=== PATIENT | female | born 1990 | race Caucasian/White ===

== ENCOUNTER 2024-03-04 15:04 | Inpatient (IN) | payer OTHER, SELFPAY ==
[2024-03-04 15:04] VITALS: BP 151/111; PULSE 124; RESP 18; TEMP 36.4; O2SAT 99; BMI 33.3
[2024-03-04] MEDS: Ondansetron 4 MG/2 ML Vial IV ×2 (16:37→21:41)
[2024-03-04] MEDS: 0.9% Normal Saline (1000mL) 1,000 ML 1000 ML IV (16:37)
[2024-03-04 16:45] LABS: Absolute Lymphocyte Count 0.92 X10^3/uL (0.83-4.51); Absolute Neutrophil Count 8.7 X10^3/uL (2.0-7.7); Basophil# 0.05 X10^3/uL; Basophil% 0.5 % (0-1); Eosinophil# 0.04 X10^3/uL; Eosinophils% 0.4 % (0-5); Hematocrit 45.4 % (37-47); Hemoglobin 15.2 g/dL (12.0-15.0); Lymphocyte # 0.92 X10^3/ul (0.83-4.51); Lymphocyte % 8.9 % (19-41); Mean Corp Hgb Conc 33.5 g/dL (32-36); Mean Corpuscular Volume 83.8 fL (81-99); Mean Platelet Vol. 8.5 fl (6.2-12.0); Monocyte# 0.55 X10^3/uL; Monocyte% 5.3 % (0-10); NRBC Flagged by Analyzer 0 % (0-5); Neutrophil # 8.71 X10^3/uL (2.7-7.7); Neutrophil % 84.5 % (47-70); Platelet Count 293 K/mm3 (150-450); RBC Distribution Width CV 12.6 % (11.6-14.6); RBC Distribution Width SD 38.3 fl (35.1-43.9); Red Blood Count 5.42 M/mm3 (4.2-5.4); White Blood Count 10.3 K/mm3 (4.4-11.0)
--- NOTE | 2024-03-04 17:00 | EDS_ITS ---
HPI HPI - GI History of Present Illness Chief Complaint: Abd Pain Detail of Chief Complaint: Right upper quadrant abdominal pain radiating through to her back Informant: patient Abdominal Pain/Flank Pain Onset: Today (Awaken from sleep at 0400) Context: Sudden Onset Timing: Continuous and Waxes and wanes Quality: Aching and Cramping Location: RUQ Current Severity: Moderate Maximum Severity: Severe Worsened by: Nothing Relieved by: Nothing Nausea/Vomiting/Emesis GI Symptom: Positive for Nausea and Vomiting (X 1) Onset: Today Diarrhea/Melena/Hematochezia GI Symptom: Positive for Diarrhea Onset: Today Stool Quality: Positive for Loose Associated Symptoms Associated Symptoms: Negative for Dysuria, Frequency, Hematuria or Urgency LMP: Presently Narrative Narrative: Patient 34-year-old G4, P4 white female with known history of gallstones who was away from sleep at 0400 because of severe right upper quadrant cramping achy pa in radiated to the intrascapular area. This was followed by nausea and vomiting x 1. She has had diarrhea. She does endorse thirst and dry mouth. She is menstruating presently. She has no symptoms of . She states she had chicken strips last evening. There is a family history of cholelithiasis. She has not noted change in color urine. She has not noted change in the color of her eyes or skin. Patient denies headache, visual, ocular auditory symptoms. Patient denies respiratory or cardiac symptoms. Patient denies urologic symptoms. Prior similar symptoms: Yes (When she was . She states she was treated with antibiotics. She d) Recent Illness/Hospitalization: No [facility] Medical History (Updated 03/04/24 @ 18:[address] Tarik Horowitz MD) Physical exam, pre-employment Home Medications No Known/Unobtainable [No Known Home Medications] 03/18/17 [History Last Taken Unknown] Allergy/AdvReac Type Severity Reaction Status Date / Time No Known Allergies Allergy Verified 03/04/24 15:06 Social History Smoking Status: Never smoker ROS ROS ED Constitutional Constitutional ED: Denies chills, fever(s), subjective or sweats ENT ENT ED: Denies ear pain, rhinorrhea or sore throat Cardiovascular Cardiovascular: Denies chest pain, orthopnea, palpitations, paroxysmal nocturnal dyspnea or racing heartbeat Respiratory/Chest Respiratory/Chest: Denies cough, dyspnea, dyspnea on exertion, orthopnea or paroxysmal nocturnal dyspnea Gastrointestinal Gastrointestinal: Reports diarrhea, nausea and vomiting; Denies abdominal pain Genitourinary Genitourinary ED: Reports LMP (females 10-50) Details: Comment: (Presently. Patient does use control.); Denies dysuria, hematuria or urinary frequency Musculoskeletal Musculoskeletal: Reports back pain; Denies arthralgias, myalgias or neck pain Integumentary Denies rash Endocrine Endocrinology: Denies polydipsia or polyphagia Hematologic/Lymphatic Hematologic/Lymphatic: Denies easy bleeding or easy bruising EXAM Physical Exam Const Vital Signs: 03/04/24 15:04 Temperature 97.6 F L Temperature Source Temporal Pulse Rate 124 H Respiratory Rate 18 Blood Pressure 151/111 H Blood Pressure Mean 124 Pulse Ox 99 Oxygen Delivery Method Room Air Positive well nourished, well developed and obese General Appearance ED: well developed and NAD; Negative for pallor Nutritional Appearance: obese HEENT Reports dry mucous membranes normocephalic and atraumatic Mouth ED: Yes dry mucous membranes Mouth: dry mucous membranes Eyes PERRL and EOMs intact bilaterally Neck supple and no JVD Resp normal respiratory effort and clear to auscultation bilaterally Cardio regular rhythm, S1 normal heart sound, S2 normal heart sound and no murmurs Rate: tachycardic GI non-distended and no masses; Negative for non-tender Auscultation: hypoactive bowel sounds Palpation: tender RUQ and Snow's sign; Negative for rigid, hepatomegaly, splenomegaly, hernia or mass Back/Spine no CVA tenderness Extremity full ROM General Extremety ED: Negative for edema or tenderness General Extremity: Negative for edema Neuro CN's II-XII intact bilaterally and moves all extremities Sensorium / Orientation: alert Psych mental status grossly normal and thought process normal Skin no wounds General Skin Exam: Negative for jaundice or pallor MDM MDM MDM Narrative Medical decision making narrative: Dr. De Anda be abdominal pain unknown etiology, peptic ulcer disease, cholelithiasis with colic, acute cholecystitis. Will obtain CBC, hepatic and lipase as well as ultrasound the right upper quadrant. Patient not eaten since last evening. Patient was offered pain medicine which she declined. She did request medication for nausea. History & Record Review Additional record(s) reviewed:: Prior outpatient record (Employment history and physical 2021) and Prior ED visit (2016) Lab Data Attestation: I reviewed the patient's lab results. Lab results narrative: White count is upper end of normal. There is a slight shift with 85% segs no bands. Liver enzymes are normal. Bilirubin is normal. Lipase is normal. Renal function is normal. Labs: Laboratory Results - last 24 hr 03/04/24 16:30 WBC 10.3 RBC 5.42 H Hgb 15.2 H Hct 45.4 MCV 83.8 MCH 28.0 MCHC 33.5 RDW Std Deviation 38.3 RDW Coeff of Keith 12.6 Plt Count 293 MPV 8.5 Immature Gran % (Auto) 0.400 Neut % (Auto) 84.5 H Lymph % (Auto) 8.9 L [place] % (Auto) 5.3 Eos % (Auto) 0.4 Baso % (Auto) 0.5 Absolute Neuts (auto) 8.7 H Absolute Lymphs (auto) 0.92 Nucleated RBC % 0 Sodium 140 Potassium 3.9 Chloride 111 H Carbon Dioxide 23.0 Anion Gap 6 BUN 13 Creatinine 0.80 Estim Creat Clear Calc 116.31 Est GFR (MDRD) Af Amer 107 Est GFR (MDRD) Non-Af 89 BUN/Creatinine Ratio 16.3 Glucose 93 Calcium 8.9 Total Bilirubin 0.40 Direct Bilirubin 0.14 AST 16 ALT 28 Alkaline Phosphatase 55 Total Protein 7.3 Albumin 3.3 Globulin 4.0 Lipase 35 Radiography Diagnostic Testing: Clinical Impression(s) from Imaging Studies Gallbladder Ultrasound 03/04/24 17:00 IMPRESSION: Biliary sludge with possible tiny nonshadowing stones in association with positive Snow sign suggesting acute cholecystitis. This may be further confirmed with HIDA scan if clinically warrante Nonvisualized pancreas which may be further assessed with CT if clinically warranted Electronically Signed: Abram Pimentel MD at 17:48 EDT , Management Discussion w/another healthcare provider: [employer] (Surgeon was contacted) Treatment and Re-Evaluation :: Patient was reassessed at 1806. She feels better inspires her nausea. She still having discomfort. She declined pain medicine. Call was placed to surgeon on-call for acute cholecystitis patient be admitted to surgical service. Patient was started on Zosyn. Discharge Plan Dx/Rx/DC Orders Clinical Impression: Hx of sinus tachycardia, Acute calculous cholecystitis, Elevated blood-pressure reading, without diagnosis of hypertension Disposition Disposition: Acute Care [facility]
--- NOTE | 2024-03-04 17:00 | US_ITS ---
STUDY: ABDOMINAL ULTRASOUND - RIGHT UPPER QUADRANT REASON FOR VISIT: Female, 34 years old ABD PAIN TECHNIQUE: Ultrasound evaluation of the right upper quadrant was performed with real-time and static cote-scale imaging. TECHNICAL QUALITY: Adequate. COMPARISON: None. FINDINGS: Liver: The liver measures 15.6 cm. There is normal echogenicity of the liver. The bile ducts are within normal limits. There is hepatic color flow. The direction of portal flow is hepatopetal. There is no demonstrated mass lesion. Gallbladder: Normal distended gallbladder. The gallbladder wall measures 3 mm. There is a positive sonographic Snow''s sign. There is no pericholecystic fluid. There is sludge and possible tiny nonshadowing stones.. Common Bile Duct (C.B.D.): The common bile duct measures 3 mm. Pancreas: Not visualized due to bowel gas producing artifact. Right Kidney: Normal size of the right kidney. The right kidney measures 12.1 x 6.1 x 5.7 cm. Normal renal cortex. The right cortex measures 1.9 cm. There is no demonstrated renal mass or cyst. There is no right hydronephrosis. US/Gallbladder IMPRESSION: Biliary sludge with possible tiny nonshadowing stones in association with positive Snow sign suggesting acute cholecystitis. This may be further confirmed with HIDA scan if clinically warrante Nonvisualized pancreas which may be further assessed with CT if clinically warranted Electronically Signed: Abram Pimentel MD at 17:48 EDT ,
[2024-03-04 17:06] LABS: AST(SGOT) 16 U/L (15-37); Alanine Aminotransfer ALT/SGPT 28 U/L (13-56); Albumin, Serum 3.3 g/dL (3.2-5.0); Alkaline Phosphatase 55 U/L (45-117); Anion Gap 6 (5-15); BUN 13 mg/dL (7-18); BUN/Creat Ratio 16.3 RATIO (10-20); Bilirubin, Direct 0.14 mg/dL (0.00-0.30); Calcium,Total 8.9 mg/dL (8.5-10.1); Chloride 111 mmol/L (98-107); EST Glomerular Filtration Rate 89 mL/min (>60); Est Glom Filt Rate - Afr Amer 107 mL/min (>60); Estimated Creatinine Clearance 116.31 ml/min; Glucose 93 mg/dL (74-106); Lipase 35 U/L (13-75); Potassium 3.9 mmol/L (3.5-5.1); Protein, Total 7.3 g/dL (6.4-8.2); Sodium Level 140 mmol/L (136-145)
--- NOTE | 2024-03-04 18:24 | NURSING ---
MED SURG [facility] ACUTE CHOLECYSTITIS
[2024-03-04] MEDS: Piperacil/Tazobactam 4.5 GM in 0.9% Normal Saline (100mL MB+) 100 ML IV (18:36)
[2024-03-04 19:05] VITALS: BP 133/96; PULSE 100; RESP 16; TEMP 36.7; O2SAT 99
[2024-03-04 20:41] VITALS: BMI 33.2
[2024-03-04 20:43] VITALS: BP 138/69; PULSE 96; RESP 18; TEMP 36.9; O2SAT 100
[2024-03-04] MEDS: 0.9% Normal Saline (1000mL) 1,000 ML 125 ML IV (21:40)
[2024-03-04] MEDS: Morphine 2 MG/ML Syringe IV (21:40)
--- NOTE | 2024-03-04 21:54 | HP.PCM.SX_ITS ---
HPI - General General Date of Admission: 03/04/24 HPI Narrative CINDY ADHIKARI, is a 34 F who presents With abdominal pain. The patient reports she woke up this morning with the pain. She says it was upper abdomen and radiates to the back. She does describe diarrhea all day long and she did vomit once at home and she has been spitting up stomach acid here. She says this feels worse than her normal gallbladder attacks. She has had gallbladder attacks in the past when she was . She denies fevers or chills. [facility]LY [facility] Medical History Physical exam, pre-employment Home Medications escitalopram oxalate 10 mg tablet 10 mg PO DAILY 03/04/24 [History Last Taken 03/03/24] segesterone acet 0.15 mg-ethinyl estradiol 0.013 mg/24 hr vaginal ring ([place]) 1 vag ring vaginal QMONTH 03/04/24 [History Last Taken 02/29/24] tirzepatide 10 mg/0.5 mL subcutaneous pen injector 30 mg subcut TH 03/04/24 [History Last Taken 02/28/24] Allergy/AdvReac Type Severity Reaction Status Date / Time No Known Allergies Allergy Verified 03/04/24 15:06 Social History Smoking Status: Never smoker ROS Constitutional Constitutional: Reports anorexia; Denies chills, fatigue or headache(s) Eyes Eyes: Denies blurry vision ENT HEENT: Denies abnormal hearing Cardiovascular Cardiovascular: Denies chest pain Respiratory/Chest Respiratory/Chest: Denies cough or dyspnea Gastrointestinal Gastrointestinal: Reports abdominal pain, diarrhea, nausea and vomiting; Denies melena Genitourinary Genitourinary: Denies difficulty urinating Musculoskeletal Musculoskeletal: Denies abnormal gait Integumentary Integumentary: Denies jaundice Psychiatric Psychiatric: Denies anxiety Endocrine Endocrinology: Denies flushing Vital Signs Vital Signs Vital Signs: 03/04/24 15:04 03/04/24 19:05 03/04/24 20:43 Temperature 97.6 F L 98.0 F 98.5 F Temperature Source Temporal Oral Pulse Rate 124 H 100 96 Respiratory Rate 18 16 18 Blood Pressure 151/111 H 133/96 H 138/69 H Blood Pressure Mean 124 108 92 Blood Pressure Source Monitor Blood Pressure Position Semi-Fowlers Blood Pressure Location Right Arm Pulse Ox 99 99 100 Oxygen Delivery Method Room Air Room Air Weight Weight: 205 lb 11.06 oz Body Mass Index (BMI) 33.2 Physical Exam Const oriented x3 and no apparent distress Resp normal respiratory effort Cardio regular rate and regular rhythm GI soft to palpation Palpation: tender epigastric Results Lab / Micro Data 03/04/24 16:30 03/04/24 16:30 Labs: Laboratory Results - last 24 hr 03/04/24 16:30: WBC 10.3, RBC 5.42 H, Hgb 15.2 H, Hct 45.4, MCV 83.8, MCH 28.0, MCHC 33.5, RDW Std Deviation 38.3, RDW Coeff of Keith 12.6, Plt Count 293, MPV 8.5, Immature Gran % (Auto) 0.400, Neut % (Auto) 84.5 H, Lymph % (Auto) 8.9 L, Phelps % (Auto) 5.3, Eos % (Auto) 0.4, Baso % (Auto) 0.5, Absolute Neuts (auto) 8.7 H, Absolute Lymphs (auto) 0.92, Nucleated RBC % 0, Sodium 140, Potassium 3.9, Chloride 111 H, Carbon Dioxide 23.0, Anion Gap 6, BUN 13, Creatinine 0.80, Estim Creat Clear Calc 116.31, Est GFR (MDRD) Af Amer 107, Est GFR (MDRD) Non-Af 89, BUN/Creatinine Ratio 16.3, Glucose 93, Calcium 8.9, Total Bilirubin 0.40, Di rect Bilirubin 0.14, AST 16, ALT 28, Alkaline Phosphatase 55, Total Protein 7.3, Albumin 3.3, Globulin 4.0, Lipase 35 Imaging Radiology Impression Gallbladder Ultrasound 03/04/24 17:00 IMPRESSION: Biliary sludge with possible tiny nonshadowing stones in association with positive Snow sign suggesting acute cholecystitis. This may be further confirmed with HIDA scan if clinically warrante Nonvisualized pancreas which may be further assessed with CT if clinically warranted Electronically Signed: Abram Pimentel MD at 17:48 EDT Reading Location ID and State: [facility] / [place] Tel [phone], Service support , Assessment & Plan Assessment/Plan (1) Acute calculous cholecystitis: PLAN: Patient is having epigastric pain. Unsure if this is acute cholecystitis or gastroenteritis. It is peculiar that she is having a lot of diarrhea despite Imodium as well. The patient says she had gallbladder attacks during her but this feels worse. Lipase was normal and LFTs were normal. She had a gallbladder ultrasound shows normal thickness gallbladder with sludge and possible tiny stones with no pericholecystic fluid. She has a normal white count but she does have a left shift. I discussed all of her findings with her in detail. I recommend admission with IV fluids and antibiotics for the night. If her pain improves I will order a HIDA scan in the morning but if her pain worsens I will likely plan on cholecystectomy tomorrow. Zhen Mcgovern MD Pager: [facility] [address] [place] [address], [address] [place] [address] Office:
[2024-03-05 02:45] VITALS: BP 116/63; PULSE 85; RESP 16; TEMP 36.8; O2SAT 97
[2024-03-05] MEDS: Morphine 2 MG/ML Syringe IV (02:58)
[2024-03-05 03:09] LABS: Internal QC Validated? YES +Cl - CLEAR BKGD; Pregnancy, Urine Negative Negative
[2024-03-05] MEDS: Piperacil/Tazobactam 3.375 GM in 0.9% Normal Saline (50mL MB+) 50 ML IV (05:17)
[2024-03-05] MEDS: Ondansetron 4 MG/2 ML Vial IV (05:24)
[2024-03-05] MEDS: 0.9% Normal Saline (1000mL) 1,000 ML 125 ML IV ×3 (05:24→22:09)
[2024-03-05 05:38] LABS: Absolute Lymphocyte Count 2.11 X10^3/uL (0.83-4.51); Absolute Neutrophil Count 4.4 X10^3/uL (2.0-7.7); Basophil# 0.03 X10^3/uL; Basophil% 0.4 % (0-1); Eosinophil# 0.25 X10^3/uL; Eosinophils% 3.4 % (0-5); Hematocrit 35.1 % (37-47); Hemoglobin 11.5 g/dL (12.0-15.0); Lymphocyte # 2.11 X10^3/ul (0.83-4.51); Lymphocyte % 28.4 % (19-41); Mean Corp Hgb Conc 32.8 g/dL (32-36); Mean Corpuscular Hgb 28.2 pg (27.0-32.0); Mean Platelet Vol. 8.6 fl (6.2-12.0); Monocyte# 0.64 X10^3/uL; Monocyte% 8.6 % (0-10); NRBC Flagged by Analyzer 0 % (0-5); Neutrophil # 4.36 X10^3/uL (2.7-7.7); Neutrophil % 58.8 % (47-70); Platelet Count 230 K/mm3 (150-450); RBC Distribution Width CV 12.8 % (11.6-14.6); RBC Distribution Width SD 39.8 fl (35.1-43.9); Red Blood Count 4.08 M/mm3 (4.2-5.4); White Blood Count 7.4 K/mm3 (4.4-11.0)
--- NOTE | 2024-03-05 06:00 | EKG12_ITS ---
Test Reason : AM EKG Blood Pressure : / mmHG Vent. Rate : 076 BPM Atrial Rate : 076 BPM P-R Int : 152 ms QRS Dur : 082 ms QT Int : 392 ms P-R-T Axes : 032 024 031 degrees QTc Int : 441 ms Normal sinus rhythm Normal ECG No previous ECGs available Confirmed by SARABJIT DANIELS, JUVE ([id number]), online editor PHUC HALL ([id number]) on 03/07/2024 9:42:27 AM Referred By: BRAD Confirmed By:JUVE WHIPPLE MD
[2024-03-05 06:16] LABS: ALB/GLOB Ratio 0.8 RATIO (0.9-2.4); AST(SGOT) 11 U/L (15-37); Alanine Aminotransfer ALT/SGPT 19 U/L (13-56); Albumin, Serum 2.6 g/dL (3.2-5.0); Alkaline Phosphatase 41 U/L (45-117); Anion Gap 4 (5-15); BUN 15 mg/dL (7-18); BUN/Creat Ratio 21.1 RATIO (10-20); Calcium,Total 8.1 mg/dL (8.5-10.1); Chloride 113 mmol/L (98-107); Creatinine, Serum 0.71 mg/dL (0.55-1.02); EST Glomerular Filtration Rate 101 mL/min (>60); Est Glom Filt Rate - Afr Amer 122 mL/min (>60); Estimated Creatinine Clearance 130.91 ml/min; Globulin 3.1 g/dL (2.2-4.2); Glucose 93 mg/dL (74-106); Lipase 24 U/L (13-75); Potassium 3.5 mmol/L (3.5-5.1); Protein, Total 5.7 g/dL (6.4-8.2); Sodium Level 140 mmol/L (136-145)
--- NOTE | 2024-03-05 07:07 | NM_ITS ---
CLINICAL: 34-year-old female with history of right upper quadrant abdominal pain. RADIONUCLIDE HEPATOBILIARY SCINTIGRAPHY COMPARISON: Abdominal ultrasound report 03/04/2024 FINDINGS: Following the intravenous administration of 5.2 mCi of 99m Tc Mebrofenin, hepatobiliary images reveal: 1. Relatively prompt and homogeneous radiopharmaceutical concentration is noted by a normal sized liver. No parenchymal defects are identified. 2. Gallbladder activity is identified at approximately 18 minutes post radiopharmaceutical administration. 3. Small intestinal tract is observed at 37 minutes following tracer injection. 4. Washout of the radiopharmaceutical by the hepatic parenchyma appears qualitatively normal. NM/Hepatobilliary Imaging IMPRESSION: 1. NORMAL 99m Tc Mebrofenin hepatobiliary imaging examination. A. Visualization of the gallbladder within 60 minutes post radiopharmaceutical administration excludes acute cholecystitis with 97% certitude. (Julian et al, Nucl Med Zaida Kelly Press pg. 35, 1980). Electronically Signed: Ariel Oleary DO at 10:26 EDT ,
--- NOTE | 2024-03-05 07:08 | PN.SURG_ITS ---
Subjective Subjective Patient reports some mild right upper quadrant pain but is improving yesterday. She reports no nausea or vomiting or diarrhea overnight. Objective Data Objective Data Vital Signs: Vital Signs Temp Pulse Resp BP Pulse Ox O2 Del Method 98.3 F 85 16 116/63 97 Room Air 03/05/24 02:45 03/05/24 02:45 03/05/24 02:45 03/05/24 02:45 03/05/24 02:45 03/05/24 02:45 Oxygen Delivery Method Room Air Weight: 205 lb 11.06 oz Body Mass Index (BMI) 33.2 Intake & Output: Intake and Output for Last 24 Hours 03/03/24 03/04/24 03/05/24 23:59 23:59 23:59 Intake Total 1100 / 1100 966.67 / 966.67 Balance 1100 / 1100 966.67 / 966.67 Lab / Micro Data 03/05/24 05:30 03/05/24 05:30 Labs: Laboratory Results - last 24 hr 03/04/24 16:30: WBC 10.3, RBC 5.42 H, Hgb 15.2 H, Hct 45.4, MCV 83.8, MCH 28.0, MCHC 33.5, RDW Std Deviation 38.3, RDW Coeff of Keith 12.6, Plt Count 293, MPV 8.5, Immature Gran % (Auto) 0.400, Neut % (Auto) 84.5 H, Lymph % (Auto) 8.9 L, Thurston % (Auto) 5.3, Eos % (Auto) 0.4, Baso % (Auto) 0.5, Absolute Neuts (auto) 8.7 H, Absolute Lymphs (auto) 0.92, Nucleated RBC % 0, Sodium 140, Potassium 3.9, Chloride 111 H, Carbon Dioxide 23.0, Anion Gap 6, BUN 13, Creatinine 0.80, Estim Creat Clear Calc 116.31, Est GFR (MDRD) Af Amer 107, Est GFR (MDRD) Non-Af 89, BUN/Creatinine Ratio 16.3, Glucose 93, Calcium 8.9, Total Bilirubin 0.40, Direct Bilirubin 0.14, AST 16, ALT 28, Alkaline Phosphatase 55, Total Protein 7.3, Albumin 3.3, Globulin 4.0, Lipase 35 03/05/24 03:00: Urine Test Negative 03/05/24 05:30: WBC 7.4, RBC 4.08 L, Hgb 11.5 L, Hct 35.1 L, MCV 86.0, MCH 28.2, MCHC 32.8, RDW Std Deviation 39.8, RDW Coeff of Keith 12.8, Plt Count 230, MPV 8.6, Immature Gran % (Auto) 0.400, Neut % (Auto) 58.8, Lymph % (Auto) 28.4, Thurston % (Auto) 8.6, Eos % (Auto) 3.4, Baso % (Auto) 0.4, Absolute Neuts (auto) 4.4, Absolute Lymphs (auto) 2.11, Nucleated RBC % 0, Sodium 140, Potassium 3.5, Chloride 113 H, Carbon Dioxide 23.0, Anion Gap 4 L, BUN 15, Creatinine 0.71, Estim Creat Clear Calc 130.91, Est GFR (MDRD) Af Amer 122, Est GFR (MDRD) Non-Af 101, BUN/Creatinine Ratio 21.1 H, Glucose 93, Calcium 8.1 L, Total Bilirubin 0.50, AST 11 L, ALT 19, Alkaline Phosphatase 41 L, Total Protein 5.7 L, Albumin 2.6 L, Globulin 3.1, Albumin/Globulin Ratio 0.8 L, Lipase 24 Radiography Diagnostic Testing: Radiology Impression Gallbladder Ultrasound 03/04/24 17:00 IMPRESSION: Biliary sludge with possible tiny nonshadowing stones in association with positive Snow sign suggesting acute cholecystitis. This may be further confirmed with HIDA scan if clinically warrante Nonvisualized pancreas which may be further assessed with CT if clinically warranted Electronically Signed: Abram Pimentel MD at 17:48 EDT , Physical Exam Const oriented x3 and no apparent distress Resp normal respiratory effort Cardio regular rate and regular rhythm GI soft to palpation Palpation: tender epigastric and RUQ Assessment & Plan Assessment/Plan (1) Acute calculous cholecystitis: PLAN: Patient is still having some mild right upper quadrant pain but denies any nausea vomiting or diarrhea. Her white count is normal with no left shift. I am ordering a HIDA to rule out acute cholecystitis. If the HIDA shows no filling I will take his afternoon for laparoscopic cholecystectomy. If the HIDA rules out cholecystitis I will try to feed her and see how she tolerates a diet. Zhen Mcgovern MD Pager: [facility] [address] [place] [address], [address] [place] [address] Office:
[2024-03-05] MEDS: 0.9% Saline Lock 10 ML Syringe IV (07:44)
[2024-03-05 09:27] VITALS: BP 129/80; PULSE 88; RESP 18; TEMP 36.4; O2SAT 99
[2024-03-05] MEDS: Pantoprazole Sodium 40 MG in 0.9% Normal Saline (100mL MB+) 100 ML 330 MG IV (09:30)
[2024-03-05] MEDS: Escitalopram Oxalate 10 MG Tablet PO (10:42)
--- NOTE | 2024-03-05 12:33 | PCM.PN.BLA ---
Progress Note The patient had a HIDA scan this morning which was read as normal. There was good filling of the gallbladder. I went to discuss this with her and she reports she is feeling better than she was yesterday and only had 2 episodes of diarrhea today and no nausea. I believe she likely has gastroenteritis. I will continue PPI, and stop the antibiotic, recheck labs in the morning, continue IV fluids. I will start her on clear liquids and see how she tolerates this. Zhen Mcgovern MD Pager: [facility] [address] [place] [address], [address] [place] [address] Office:
[2024-03-05 14:21] VITALS: BP 133/78; PULSE 91; RESP 18; TEMP 36.7; O2SAT 99
[2024-03-05] MEDS: Acetaminophen 325 MG Tablet 650 MG PO ×2 (14:23→20:25)
--- NOTE | 2024-03-05 15:08 | CASEMGMT ---
COLIN HEARD Assessment Face to Face with patient for initial transition planning/care coordination assessment. RN CM introduced self and role at [facility], pt voices understanding. Pt is A&Ox4 and is resting comfortably in bed and is calm. Care providers, pharmacy, and demographics verified. Admitting dx: Acute Cholecystitis PCP: Shannon Lopez Specialists: [facility] Pharmacy: [facility] Insurance: Pt is SP. SW has the pt for this and the pt states that she has no further concerns regarding this matter Prescription Benefit: None at this time. Educated about services like good Rx LNOK: Noelle Duvall (M) Living Arrangements: Pt lives with her mom and 4 children (Ages 6,7,9, & 10) in a single story home with a BM with 2 steps to enter ADLs/IADLs: Ind Transportation: Self DME:BP Cuff. Stethoscope. Pulse Ox. Thermometer. HHC/SNF: Denies history or needs Pt?s goal: Home no needs Plan: 6-click is 24. Pt wishes to return home once medically ready. Pt denies further needs. CM to follow. Robert Herrera RN, CM
[2024-03-05 20:22] VITALS: BP 116/61; PULSE 71; RESP 16; TEMP 36.6; O2SAT 99
[2024-03-06 02:34] VITALS: BP 109/67; PULSE 70; RESP 16; TEMP 36.4; O2SAT 98
[2024-03-06] MEDS: Acetaminophen 325 MG Tablet 650 MG PO (02:39)
[2024-03-06] MEDS: 0.9% Normal Saline (1000mL) 1,000 ML 125 ML IV (05:07)
[2024-03-06 06:38] LABS: Absolute Lymphocyte Count 2.28 X10^3/uL (0.83-4.51); Absolute Neutrophil Count 3.1 X10^3/uL (2.0-7.7); Basophil# 0.02 X10^3/uL; Basophil% 0.3 % (0-1); Eosinophil# 0.15 X10^3/uL; Eosinophils% 2.5 % (0-5); Hematocrit 32.3 % (37-47); Hemoglobin 10.8 g/dL (12.0-15.0); Lymphocyte # 2.28 X10^3/ul (0.83-4.51); Lymphocyte % 37.6 % (19-41); Mean Corp Hgb Conc 33.4 g/dL (32-36); Mean Corpuscular Hgb 28.6 pg (27.0-32.0); Mean Corpuscular Volume 85.7 fL (81-99); Mean Platelet Vol. 8.7 fl (6.2-12.0); Monocyte# 0.51 X10^3/uL; Monocyte% 8.4 % (0-10); NRBC Flagged by Analyzer 0 % (0-5); Platelet Count 209 K/mm3 (150-450); RBC Distribution Width CV 12.3 % (11.6-14.6); RBC Distribution Width SD 38.3 fl (35.1-43.9); Red Blood Count 3.77 M/mm3 (4.2-5.4); White Blood Count 6.1 K/mm3 (4.4-11.0)
[2024-03-06 07:03] LABS: ALB/GLOB Ratio 0.8 RATIO (0.9-2.4); AST(SGOT) 11 U/L (15-37); Alanine Aminotransfer ALT/SGPT 19 U/L (13-56); Albumin, Serum 2.5 g/dL (3.2-5.0); Alkaline Phosphatase 41 U/L (45-117); Anion Gap 6 (5-15); BUN 6 mg/dL (7-18); BUN/Creat Ratio 10.5 RATIO (10-20); Calcium,Total 7.9 mg/dL (8.5-10.1); Chloride 109 mmol/L (98-107); Creatinine, Serum 0.57 mg/dL (0.55-1.02); EST Glomerular Filtration Rate 131 mL/min (>60); Est Glom Filt Rate - Afr Amer 158 mL/min (>60); Estimated Creatinine Clearance 163.07 ml/min; Globulin 3.1 g/dL (2.2-4.2); Glucose 83 mg/dL (74-106); Potassium 3.3 mmol/L (3.5-5.1); Protein, Total 5.6 g/dL (6.4-8.2); Sodium Level 140 mmol/L (136-145)
--- NOTE | 2024-03-06 08:17 | PN.SURG_ITS ---
Subjective Subjective Patient is having mild soreness throughout her abdomen. She reports no more diarrhea overnight. She tolerated clear liquids yesterday. Objective Data Objective Data Vital Signs: Vital Signs Temp Pulse Resp BP Pulse Ox O2 Del Method 97.5 F L 70 16 109/67 98 Room Air 03/06/24 02:34 03/06/24 02:34 03/06/24 02:34 03/06/24 02:34 03/06/24 02:34 03/06/24 02:36 Oxygen Delivery Method Room Air Weight: 205 lb 11.06 oz Body Mass Index (BMI) 33.2 Intake & Output: Intake and Output for Last 24 Hours 03/04/24 03/05/24 03/06/24 23:59 23:59 23:59 Intake Total 1100 / 1100 2937.09 / 2937.09 870.83 / 870.83 Balance 1100 / 1100 2937.09 / 2937.09 870.83 / 870.83 Lab / Micro Data 03/06/24 06:11 03/06/24 06:11 Labs: Laboratory Results - last 24 hr 03/06/24 06:11: WBC 6.1, RBC 3.77 L, Hgb 10.8 L, Hct 32.3 L, MCV 85.7, MCH 28.6, MCHC 33.4, RDW Std Deviation 38.3, RDW Coeff of Keith 12.3, Plt Count 209, MPV 8.7, Immature Gran % (Auto) 0.200, Neut % (Auto) 51.0, Lymph % (Auto) 37.6, Coryell % (Auto) 8.4, Eos % (Auto) 2.5, Baso % (Auto) 0.3, Absolute Neuts (auto) 3.1, Absolute Lymphs (auto) 2.28, Nucleated RBC % 0, Sodium 140, Potassium 3.3 L, Chloride 109 H, Carbon Dioxide 25.0, Anion Gap 6, BUN 6 L, Creatinine 0.57, E stim Creat Clear Calc 163.07, Est GFR (MDRD) Af Amer 158, Est GFR (MDRD) Non-Af 131, BUN/Creatinine Ratio 10.5, Glucose 83, Calcium 7.9 L, Total Bilirubin 0.40, AST 11 L, ALT 19, Alkaline Phosphatase 41 L, Total Protein 5.6 L, Albumin 2.5 L, Globulin 3.1, Albumin/Globulin Ratio 0.8 L Radiography Diagnostic Testing: Radiology Impression Hepatobiliary Scan Nuclear Medicine 03/05/24 07:07 IMPRESSION: 1. NORMAL 99m Tc Mebrofenin hepatobiliary imaging examination. A. Visualization of the gallbladder within 60 minutes post radiopharmaceutical administration excludes acute cholecystitis with 97% certitude. (Julian et al, Nucl Med Zaida Kelly [employer] pg. 35, 1980). Electronically Signed: Ariel DO Anirudh at 10:26 EDT , Physical Exam Const oriented x3 and no apparent distress Resp normal respiratory effort GI soft to palpation and non-tender Assessment & Plan Assessment/Plan (1) Acute calculous cholecystitis: PLAN: The patient does not have cholecystitis. It is likely gastroenteritis. H BONIFACIO test yesterday was normal. She tolerated clears overnight and I will start a regular diet today. I will stop her IV fluids that she says she is feeling bloated. Hopeful for DC later today. I will do an outpatient EGD to evaluate her stomach or peptic ulcer disease and I have started on pantoprazole and Carafate. Zhen Mcgovern MD Pager: [facility] [address] [place] [address], [address] [place] [address] Office:
[2024-03-06 08:18] VITALS: BP 121/77; PULSE 67; RESP 16; TEMP 36.3; O2SAT 98
[2024-03-06] MEDS: Pantoprazole Sodium 40 MG Tablet PO (08:28)
[2024-03-06] MEDS: Escitalopram Oxalate 10 MG Tablet PO (08:28)
--- NOTE | 2024-03-06 10:10 | CASEMGMT ---
Social Work SW spoke w/pt briefly in room in regard to insurance. Pt states she has insurance through her employer. 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 She is going to reach out to and have them send over information. SW gave her the fax and phone number to SW on [employer]. SW remains available if needed in regard to insurance. DANK Rincon
[2024-03-06] MEDS: Sucralfate 1 GM Tablet PO (11:23)
--- NOTE | 2024-03-06 14:02 | DS.PCM_ITS ---
Providers Date of Admission: 03/04/24 Primary Care Physician: Dr. Shannon Lopez MD Reason For Visit: ACUTE CHOLECYSTITIS Diagnosis Discharge Diagnosis (1) Acute calculous cholecystitis: Status: Acute Code(s): K80.00 - Calculus of gallbladder with acute cholecystitis without obstruction Plan: The patient does not have cholecystitis. It is likely gastroenteritis. HIDA test yesterday was normal. She tolerated clears overnight and I will start a regular diet today. I will stop her IV fluids that she says she is feeling bloated. Hopeful for DC later today. I will do an outpatient EGD to evaluate her stomach or peptic ulcer disease and I have started on pantoprazole and Carafate. Zhen Mcgovern MD Pager: [facility] [address] [place] [address], [address] [place] [id number] Office: Medications at Discharge Home Medications escitalopram oxalate 10 mg tablet 10 mg PO DAILY 03/04/24 segesterone acet 0.15 mg-ethinyl estradiol 0.013 mg/24 hr vaginal ring (An novera) 1 vag ring vaginal QMONTH 03/04/24 tirzepatide 10 mg/0.5 mL subcutaneous pen injector 30 mg subcut TH 03/04/24 omeprazole 40 mg capsule,delayed release 40 mg PO DAILY #60 caps 03/06/24 sucralfate 1 gram tablet 1 g PO 1HR_ACHS 2 weeks #30 tabs 03/06/24 Hospital Course Operations None Procedures None Summary of Care Provided Hospital Course: The patient was originally admitted with right upper quadrant pain and cholelithiasis. The following day HIDA test was performed and it showed filling of the gallbladder ruling out acute cholecystitis. I believe she likely had gastroenteritis or some sort of viral illness. She seems to be doing better and tolerating clear liquids and some regular diet and the diarrhea has ceased. The patient likely has peptic ulcer disease so she was started on PPI and Carafate and I will discharge her home on both of these and she will follow-up with me for EGD to evaluate. We may also perform elective laparoscopic cholecystectomy. Weight / BMI Weight Weight: 205 lb 11.06 oz Body Mass Index (BMI) 33.2 ABG / Lab / Microbiology Data 03/06/24 06:11 03/06/24 06:11 Laboratory: Laboratory Results - last 24 hr 03/06/24 06:11: WBC 6.1, RBC 3.77 L, Hgb 10.8 L, Hct 32.3 L, MCV 85.7, MCH 28.6, MCHC 33.4, RDW Std Deviation 38.3, RDW Coeff of Keith 12.3, Plt Count 209, MPV 8.7, Immature Gran % (Auto) 0.200, Neut % (Auto) 51.0, Lymph % (Auto) 37.6, [place] % (Auto) 8.4, Eos % (Auto) 2.5, Baso % (Auto) 0.3, Absolute Neuts (auto) 3.1, Absolute Lymphs (auto) 2.28, Nucleated RBC % 0, Sodium 140, Potassium 3.3 L, Chloride 109 H, Carbon Dioxide 25.0, Anion Gap 6, BUN 6 L, Creatinine 0.57, Estim Creat Clear Calc 163.07, Est GFR (MDRD) Af Amer 158, Est GFR (MDRD) Non-Af 131, BUN/Creatinine Ratio 10.5, Glucose 83, Calcium 7.9 L, Total Bilirubin 0.40, AST 11 L, ALT 19, Alkaline Phosphatase 41 L, Total Protein 5.6 L, Albumin 2.5 L, Globulin 3.1, Albumin/Globulin Ratio 0.8 L D/C Instructions Discharge Diet: Light diet - advance as tolerated Discharge Activity: Return to Normal Activity Call your doctor if your incision/area has: Increased Pain/ Swelling Call your doctor if you observe: Fever of 101 or Higher and Inability to have a bowel movement Please Follow Up With: Zhen Mcgovern MD When: Please call to schedule 1 week follow up appointment. [phone] Meaningful Use Info Meaningful Use Meaningful Use Diagnoses (Choose all that apply): None applicable Ischemic Stroke Statin Dosing Therapy Reference: STATIN DOSE THERAPY REFERENCE: * Patients > 75 years receive moderate or high dose statin therapy. * Patients 75 years or YOUNGER should receive HIGH intensity statin dose unless contraindicated. You will be required to document reason for non-treatment if statin daily dose does not meet guidelines. HIGH DOSE STATIN THERAPY DAILY Atorvastatin > than or = to 40 mg Rosuvastatin > than or = to 20 mg Amlodipine + Atorvastatin > than or = to 2.5/40 mg Ezetimibe + Simvastatin 10/80 mg Simvastatin 80mg Discharge Plan Admission Admit Date/Time: 03/04/24 21:57 Attending Provider: Zhen Mcgovern Primary Care Provider: Shannon Lopez Discharge Orders/Prescriptions Prescriptions: New sucralfate 1 gram Tablet 1 g PO 1HR_ACHS 14 Days Qty: 30 0RF omeprazole 40 mg capsule,delayed release(DR/EC) 40 mg PO DAILY Qty: 60 1RF Continued escitalopram oxalate 10 mg tablet 10 mg PO DAILY tirzepatide 10 mg/0.5 mL pen injector 30 mg subcut TH Patient Comments: PT STATES SHE GETS THE 10MG DOSE, AND TAKES 60 UNITS Annovera 0.15-0.013 mg/24 hour ring 1 vag ring vaginal QMONTH Rx Instructions: PT PUT NEW RING IN ON 02/29/24 Referrals / Follow Up: Shannon Lopez MD [Primary Care Provider] - Disposition Disposition (needs filled in before D/C Order can be placed): Home, Self Care
--- NOTE | 2024-03-06 14:55 | PHA.DC_ITS ---
Pharmacy [facility] has performed discharge medication reconciliation and counseling for this patient. The patient's discharge medication list was reviewed for discrepancies and discrepancies were resolved. The patient was counseled on the following discharge medications and changes in medications for homegoing were reviewed. 1. PRILOSEC 2. CARAFATE The Reason for Use, instructions for use, and potential side effects were reviewed for all new medications. The patient's questions regarding all of their medications were answered. The patient was able to verbally demonstrate an understanding of their discharge medications. Medications at Discharge Home Medications escitalopram oxalate 10 mg tablet 10 mg PO DAILY 03/04/24 segesterone acet 0.15 mg-ethinyl estradiol 0.013 mg/24 hr vaginal ring (Annovera) 1 vag ring vaginal QMONTH 03/04/24 tirzepatide 10 mg/0.5 mL subcutaneous pen injector 30 mg subcut TH 03/04/24 omeprazole 40 mg capsule,delayed release 40 mg PO DAILY #60 caps 03/06/24 sucralfate 1 gram tablet 1 g PO 1HR_ACHS 2 weeks #30 tabs 03/06/24
[2024-03-06 15:28] VITALS: BP 132/77; PULSE 72; RESP 18; TEMP 36.9; O2SAT 99
--- NOTE | 2024-03-06 16:21 | CASEMGMT ---
Social Work SW received copy of pt's insurance card from pt's employer. [employer] notified and card sent to them. Copy of card placed on pt chart. Essence ODEN
== END 2024-03-06 15:47 | disposition home or self-care (01) | DRG 384 ==
LOC: ED 18:08 → MS3 22:13
PROVIDERS: Anesthesiology; Admitting Provider Surgery; Emergency Provider Emergency Medicine; PCP Family Medicine; Visit Provider Surgery
DX: K27.9 Peptic ulcer, site unspecified, unspecified as acute or chronic, without hemorrhage or perforation (principal)
CPT/HCPCS: 36415; 76705; 78226; 80048; 80053; 80076; 81025; 83690; 85025; 93005; 99284; A9537; J7030; A4216; J2405

== ENCOUNTER 2024-04-22 10:36 | Day surgery (SDC) | payer OTHER, SELFPAY ==
[2024-04-22] VITALS (13 sets, daily range): BP systolic 126–179; BP diastolic 73–116; PULSE 69–88; RESP 16–20; TEMP 36.1–36.6; O2SAT 96–100; BMI 32.5
[2024-04-22 10:59] LABS: Internal QC Validated? YES +Cl - CLEAR BKGD; Pregnancy, Urine Negative Negative; Record Kit Lot#,Urine Preg 772476
[2024-04-22] MEDS: Lactated Ringers 1,000 ML 15 ML IV ×2 (11:07→15:10)
--- NOTE | 2024-04-22 11:17 | PCM.PRE.AN2 ---
ASA Classification* ASA Classification ASA Classification: 2 Assessment & Plan Anesthesia* Anesthesia Assessment Anesthesia Assessment: Discussed sedation and/or anesthesia options, risks, benefits, and alternatives with patient/parents/legal guardian/POA. Questions invited. The patient/parents/legal guardian/POA seems to understand and agrees to proceed with anesthesia plan. Reviewed the physical assessment, medical history, allergy history and patient home medications list prior to surgery/procedure/anesthetic and documented any changes. Performed airway and anesthesia risk assessments. 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 When Was Last Pacemaker Check QUESTION #4 FULL TEXT: You/Your Family Experience fever (hyperthermia) with Anesthesia Last Oral Intake Last Oral intake: Last Oral Intake NPO since 00:00 04/22/24 11:03 Meds taken in AM with sips of Yes 04/22/24 11:03 water? Meds patient instructed to take am of surgery PONV PONV - hoop machine operator: PONV - hoop machine operator Female Yes 04/14/24 10:29 HX of Motion Sickness Yes 04/14/24 10:29 HX of N/V After Surgery No 04/14/24 10:29 Non-Smoker No 04/14/24 10:29 Duration of Surgery greater Yes 04/14/24 10:29 than 60 minutes Number of Risk Factors 3 04/14/24 10:29 PONV Score Moderate Risk 04/14/24 10:29 Height & Weight Height & Weight: Anesthesia: Height & Weight Height 5 ft 6 in 04/22/24 11:03 Weight: 91.626 kg 04/22/24 11:03 Body Mass Index (BMI) 32.5 04/22/24 11:03 Respiratory Assessment Respiratory Assessment - hoop machine operator: Respiratory Tract Infection Hx - hoop machine operator Hx Respiratory Tract Infection No 04/14/24 10:29 STOP Sleep Apnea STOP Sleep Apnea - hoop machine operator: STOP Sleep Apnea - hoop machine operator Hx Hypertension Yes: NO MEDS 04/14/24 10:29 Hx Sleep Apnea No 04/14/24 10:29 CPAP BIPAP Do you snore loudly (louder No 04/14/24 10:29 than talking or can be heard Do you often feel tired/ No 04/14/24 10:29 fatigued/ sleepy during daytime? Has anyone observed you stop No 04/14/24 10:29 breathing during sleep? STOP Results Negative 04/14/24 10:29 QUESTION #5 FULL TEXT : Do you snore loudly (louder than talking or can be heard through closed doors)? 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 Specify any problems Hx of Preganancy in last 3 No 04/14/24 10:29 Months Nurse Filling Out Transfusion SANDRO 04/14/24 10:29 & Questions: Date: 04/14/24 04/14/24 10:29 Time: 10:32 04/14/24 10:29 Patient unable to answer at this time (ie. confused, unrespo /Reproduction History /Reproductive History - hoop machine operator: /Reproductive Hx- hoop machine operator Hx Now No 04/14/24 10:29 Gestational Age (in weeks): EDC: Hx Hx Para Hx Section SAB No 04/14/24 10:29 Active Medications Active Medications: Current Medications Generic Name Dose Route Start Last Admin Trade Name Freq PRN Reason Stop Dose Admin Cefotetan Disodium 2 gm/ 100 mls @ 200 mls/hr 04/22/24 12:00 Sodium Chloride IV 04/22/24 12:29 PREOP ONE Lactated Ringer's 1,000 mls @ 15 mls/hr 04/22/24 10:45 04/22/24 11:07 IV 15 mls/hr .Q48H MARY ANN Administration Anesthesia Focused Assessment* Temperature: 96.9 F Pulse Rate: 78 Blood Pressure: 126/73 Respiratory Rate: 16 Pulse Ox: 100 Airway Assessment Mouth opens: >3 cm Mallampati Score: II Focused Labs Anesthesia Preop lab: CBC WBC 6.1 K/mm3 (4.4-11.0) 03/06/24 06:11 RBC 3.77 M/mm3 (4.2-5.4) L 03/06/24 06:11 Hgb 10.8 g/dL (12.0-15.0) L 03/06/24 06:11 Hct 32.3 % (37-47) L 03/06/24 06:11 Plt Count 209 K/mm3 (150-450) 03/06/24 06:11 CHEMISTRY Potassium 3.3 mmol/L (3.5-5.1) L 03/06/24 06:11 Sodium 140 mmol/L (136-145) 03/06/24 06:11 BUN 6 mg/dL (7-18) L 03/06/24 06:11 Creatinine 0.57 mg/dL (0.55-1.02) 03/06/24 06:11 Glucose 83 mg/dL (74-106) 03/06/24 06:11 COAG Urine Test Negative Negative 04/22/24 10:47 Review of Systems (Anesthesia) ROS Narrative System reviewed and no additional complaints, except as documented. [facility] Medical History Varicose vein of leg Wears glasses Depression Anxiety Alcohol use Migraine headache Gastric reflux Smoker Hypertension Physical exam, pre-employment Home Medications ?Medication ?Instructions ?Recorded ?Last Taken ?Type escitalopram oxalate 10 mg tablet 10 mg PO DAILY 03/04/24 04/21/24 History tirzepatide 10 mg/0.5 mL 30 mg subcut TH 03/04/24 04/03/24 History subcutaneous pen injector omeprazole 40 mg capsule,delayed 40 mg PO DAILY #60 caps 03/06/24 04/22/24 Rx release Allergy/AdvReac Type Severity Reaction Status Date / Time sucralfate (From Carafate) AdvReac Severe Swelling Verified 04/22/24 10:54 Surgical History History of wisdom tooth extraction Social History Smoking Status: Current every day smoker tobacco type: smokeless tobacco alcohol intake: never substance use type: does not use
--- NOTE | 2024-04-22 11:33 | HP.PCM_ITS ---
History and Physical Date of Admission: 04/22/24 Intake Vital Signs 03/04/2420:41 03/19/2414:33 Height 5 ft 6 in 5 ft 6 in Weight: 209 lb BMI 33.7 BP 137/91 H Blood Pressure Location Rt brachial Position Sitting Respiration 18 Pulse 90 Pulse Source Monitor Temp 97.3 F L Temp Source Temporal Pulse Oximetry (%) 97 Oxygen Delivery Method room air Intake Visit Reasons: CHOLECYSTITIS [facility] ER FU Chief Complaint: cholecystitis [facility] er f/u Allergies sucralfate (From Carafate) Adverse Reaction (Severe, Verified 03/19/24 14:40) Swelling [facility] Medical History (Updated 03/19/24 @ 14:39 by Lakshmi Angeles LPN) Physical exam, pre-employment Social History (Updated 03/19/24 @ 14:33 by Lakshmi Angeles LPN) Smoking Status: Never smoker alcohol intake: never substance use type: does not use HPI HPI HPI: Patient was a recently admitted to the hospital under my service for right upper quadrant pain and nausea vomiting diarrhea. At that time the patient's diagnosis was thought to possibly also be gastroenteritis versus peptic ulcer disease. She was started on PPI. She reports that she has mild improvement but she is having some right upper quadrant tenderness. She is been very careful about her diet. She denies nausea or vomiting. ROS General General: Yes weight change; No appetite, fatigue, colon cancer, breast cancer or weakness HEENT HEENT: No difficulty swallowing, eye injury, eye surgery, swollen glands or hoarseness Endo Endocrine: No thyroid disease, diabetes mellitus, thyroid cancer, Hair loss, heat intolerance or cold intolerance Skin Skin: No rash or changing moles Musc Musculoskeletal: No back problems, arthritis, rheumatoid arthritis, gout or joint pain Cardio Cardiovascular: No murmur, pacemaker, heart disease, atrial fibrillation, high blood pressure, heart attack, heart stent, palpitations, shortness of breat with exertion or chest pain Psych Psychiatric: Yes depression and anxiety; No hearing voices Resp Respiratory: No shortness of breath, No sleep apnea, No cough, No COPD, No asthma, No emphysema and No wheezing Gastro Gastrointestinal: Yes abdominal pain, No nausea or vomiting, Yes diarrhea, No constipation, No blood in stool, No acid reflux, Yes hemorrhoids, No ulcers, Yes gallbladder problem and No black,tarry stools Rashaun Hematologic: No blood thinners, No blood disorders, No bleeding, No anemia and No blood clots Neuro Neurologic: No numbness, No tingling and No weakness Exam Const General: cooperative Orientation: alert and oriented x3 HENMT Head: normal to inspection Neck Neck: normal visual inspection and full ROM Chest Chest palpation & inspection: normal inspection of the chest Resp Effort & Inspection: normal respiratory effort Auscultation: clear to auscultation bilaterally Cardio Rate: regular rate Rhythm: regular rhythm GI Inspection: non-distended Palpation: soft and tender in the RUQ Skin General: no rashes or lesions noted Neuro General: patient alert and patient oriented x3 Extrem General: full ROM Psych Appearance: grossly normal Mental Status: mental status grossly normal Assessment and Plan Assessment and Plan (1) Cholecystitis: Status: Acute Plan: The patient likely has some element of chronic cholecystitis that she is still having some right upper quadrant pain with palpation. She did have sludge and some small gallstones on her ultrasound. I did discuss laparoscopic cholecystectomy with her. I discussed the procedure in detail with the patient. I discussed the risks, benefits, and alternatives of the procedure. I discussed the risks including but not limited to bleeding, infection, injury to surrounding organs such as the liver, bile duct, bowels. I did discuss the possibility of having to convert to an open procedure as well as the possibility that if any injuries occurred this may necessitate further surgery at a tertiary care center. I asked her to stay on her PPI until after surgery. Zhen Mcgovern MD Pager: [facility] [address] [place] [address], [address] [place] [address] Office: I have examined the patient and the H&P has been reviewed. There are no clinical changes since date of exam.
[2024-04-22] MEDS: Cefotetan 2 GM in 0.9% NS 100 ML IV (11:58)
--- NOTE | 2024-04-22 12:00 | GALL_PTH ---
PATIENT: CINDY ADHIKARI LOC: [facility] [place] U#:[id number] AGE/SX: 34/F ROOM: RE04/22/[address]: Dr. Zhen Mcgovenr MD : 1990 BED: DIS: 04/22/2024 SPEC #: [id number] RECD: 04/22/24 13:17 STATUS: ANKIT RENEE #: [id number] LYNETTE: 04/22/24 12:[address]: Zhen Mcgovern DEPT: SURGICAL PATHOLOGY RECD BY: Siri Crow ENTERED: 04/22/24 13:51 SP TYPE: CLYDE VILLALOBOS DR: Dr. Shannon Lopez MD Tissues: Gallbladder, NOS Procedures: Surgery Specimen Level III HEADER OPERATION: Laparoscopic, cholecystectomy with IOC PRE-OP DIAGNOSIS: Cholecystitis TISSUE SUBMITTED: Gallbladder and contents MICROSCOPIC DIAGNOSIS Gallbladder, cholecystectomy: Cholesterolosis and chronic cholecystitis. Benign pericystic lymph node. AM/mr 04/23/2024 MICROSCOPIC DESCRIPTION Slides are reviewed. GROSS DESCRIPTION Received is one container labeled with the patient's name and designated gallbladder. The specimen consists of a gallbladder measuring 9.5 x 3.5 x 2.5 cm. The external surface is smooth and glistening. Focally, it is granular, hemorrhagic and contains cautery artifact. The lumen of the gallbladder contains yellow-green mucoid bile and no calculi are present. The mucosa is bile-stained and has a yellow-chalky discoloration. No mass lesions are identified. The gallbladder wall averages 0.2 cm in thickness and is free of mass lesions. [employer] sections of the gallbladder and the cystic duct at margin of resection are submitted in one cassette. / AM: 04/22/2024 TC:3 CPT: 38417
--- NOTE | 2024-04-22 12:10 | RAD_ITS ---
INDICATION: PAIN EXAMINATION/TECHNIQUE: Cine intraoperative views are presented for evaluation. Total Fluoroscopic Time: 8.3 seconds OR Radiation dosage index: 0.141 mGy COMPARISON: No relevant prior comparison study available FINDINGS: No filling defects are identified. There is no biliary ductal dilatation. There is free passage into the duodenum. RAD/Cholangiogram/ O R,Initial IMPRESSION: Negative intraoperative cholangiogram. Electronically Signed: Navneet Craig MD at 13:01 EDT ,
[2024-04-22] MEDS: Bupivacaine 0.25% 30 ML Vial (12:30)
--- NOTE | 2024-04-22 12:46 | PCM.OPRPT ---
Report of Operation Date of Procedure: 04/22/24 Pre-Operative Diagnosis: Cholelithiasis and biliary colic Post-Operative Diagnosis: Same Surgery/Procedure Performed:: Laparoscopic cholecystectomy with cholangiograms Type of Anesthesia: General/Regional Specimen's removed: Gallbladder Estimated Blood Loss (mL): 10 Description of Procedure: After obtaining informed consent patient was brought back to the operating room. General anesthesia was induced. The abdomen was prepped and draped in usual sterile fashion. A small midline incision was made superior to the umbilicus and deepened to the level of fascia. The fascia was elevated and incised. Next the peritoneum was elevated and incised in the same fashion. Finger sweep was performed and the Mathur trocar was placed into the abdomen. The balloon was inflated. The abdomen was inflated to 15 mmHg. Next a camera was introduced into the abdomen and the abdomen was inspected. Next under direct visualization three 5-mm ports were placed one subxiphoid and 2 subcostal. Next the gallbladder was elevated and retracted toward the right shoulder. The peritoneum was stripped from the gallbladder. The infundibulum was located and retracted laterally. Next the triangle of Calot was dissected and the cystic duct and cystic artery were identified. Cholangiograms were performed. The Graves clamp was used to clamp across the infundibulum and the catheter needle was inserted into the gallbladder. Under fluoroscopy contrast was instilled into the gallbladder and the common duct, cystic duct as well as proximal hepatic ducts were identified. There was good filling of the duodenum. There were no filling defects noted in the common bile duct. The clamp was removed as well as the needle and the infundibulum was grasped once more. Three hemolock clips were placed across the cystic duct. The cystic duct was then divided leaving 2 clips on the stump. The cystic artery was clipped and divided in the same fashion. The hook cautery was then used to take the gallbladder off of the gallbladder bed. Hemostasis was obtained. Gallbladder fossa was irrigated and no active bleeding or bile leakage was noted. Next the camera was introduced in the subxiphoid port. An Endopouch bag was placed through the umbilical port and the gallbladder was placed into it. The gallbladder was then removed through the umbilical incision. The camera was then reinserted through the umbilical port. The gallbladder fossa was inspected once more and noted to be hemostatic with no leaking bile. The abdomen was suctioned dry. The 5 mm ports were removed under direct visualization. The umbilical port was then removed and the air was removed from the abdomen. Next using an 0 Vicryl suture the umbilical fascia was closed in a [id number] fashion. The umbilical port site was irrigated local anesthetic was administered to all the incisions. All the incisions were closed with interrupted subcuticular 4-0 Monocryl sutures followed by Steri-Strips and dressings. The patient was awoken and taken to PACU in stable condition. Admit VTE Documentation VTE Mechan Device Prophylaxis: SCD's
--- NOTE | 2024-04-22 12:48 | DCINST_ITS ---
Discharge Instructions Procedure Gallbladder Diet Discharge Diet: Light diet - advance as tolerated Activity Discharge Activity: May Not Drive (for 2-3 days or while taking narcotic pain medications.) and - (Do not drive, work heavy equipment or sign legal documents for 24 hours.) May shower in (days): 1 Lifting Restrictions: 20 lbs for 2 weeks Additional Activity Instructions:: Pain medication may cause nausea. You should typically eat light foods as you take your pain medications. Pain medication may also cause constipation. If this is a problem for you, please discuss with your doctor. Alternate ibuprofen and Tylenol for pain control, oxycodone for breakthrough pain Dressing / Incision Call your doctor if your incision/area has: Continuous Slow Oozing, Sudden Increased Bleeding, Increased Pain/ Swelling, Increased Redness and Foul Smelling Discharge Call your doctor if you observe: Fever of 101 or Higher Suture Line Care: Avoid Pulling/Pushing and Avoid Pinching/Bending Remove Dressing in: 2 days (Remove clear dressings in 2 days, remove Steri- Strips in 7 to 10 days.) Cleanse incision/area with: Soap & Water Follow Up Care Please Follow Up With: Zhen Mcgovern MD When: Please call to schedule 2 week follow up appointment. [phone] Test Results: Test results from this visit will be discussed in further detail at your follow- up appointment, if applicable. Discharge Plan Admission Attending Provider: Zhen Mcgovern Primary Care Provider: Shannon Lopez Instructions Print Language: Singaporean Discharge Orders/Prescriptions Prescriptions: New oxycodone 5 mg Tablet 5 - 10 mg PO Q4H PRN PRN (Reason: Pain Score 4-10) 5 Days Qty: 20 0RF No Action escitalopram oxalate 10 mg tablet 10 mg PO DAILY tirzepatide 10 mg/0.5 mL pen injector 30 mg subcut TH Patient Comments: PT STATES SHE GETS THE 10MG DOSE, AND TAKES 60 UNITS omeprazole 40 mg capsule,delayed release(DR/EC) 40 mg PO DAILY Qty: 60 1RF Referrals / Follow Up: Shannon Lopez MD [Primary Care Provider] - Disposition Disposition (needs filled in before D/C Order can be placed): Home, Self Care
--- NOTE | 2024-04-22 12:55 | PCM.POST.ANE ---
Anesthesia: Postop Eval I Current Vital Signs Temperature: 98 F Pulse Rate: 88 Blood Pressure: 175/98 Respiratory Rate: 20 Pulse Ox: 99 Oxygen Delivery Method: Room Air Assessment Airway patent: Yes Spontaneous unlabored respirations: Yes Mental status: Awake nausea: Yes Vomiting: No Anesthesia Complication: No Fluid Hydration Crystalloid volume administer (ml): 1,100 Total IV fluid infused: 1,100 Progress Note Anesthesia document: Postop Eval 1 completed: Yes
--- NOTE | 2024-04-22 14:38 | POSTOPAN2_ITS ---
Anesthesia Postop Eval I Sum Postop Eval Completion status Anesthesia document: Postop Eval 1 completed: Yes Anesthesia Postop Eval I Summary Anesthesia Postop Eval I Summary: Anesthesia Postop Eval I: Assessment Summary Airway patent Yes 04/22/24 12:56 [email or web address] [email or web address] Spontaneous unlabored Yes 04/22/24 12:56 [email or web address] [email or web address] respirations Mental status Awake 04/22/24 12:56 [email or web address] nausea Yes 04/22/24 12:56 [email or web address] [email or web address] Vomiting No 04/22/24 12:56 [email or web address] Anesthesia Postop Eval I: Fluid Summary Crystalloid volume administer 1,100 04/22/24 12:56 [email or web address] (ml) Colloids volume administered ( ml) Blood Product volume administered (ml) Total IV fluid infused 1,100 04/22/24 12:56 [email or web address] Anesthesia Postop Eval I: Summary Notes Anesthesia Complication No 04/22/24 12:56 [email or web address] Anesthesia Complication Comment: Post-operative progress note Anesthesia: Postop Eval II Evaluation Mental status: Awake and Calm Pain Level: 6 (Patient states pain is tolerable) nausea: No Vomiting: No Complications Anesthesia Complication: No
--- NOTE | 2024-04-22 14:38 | PCM.POSTANE2 ---
Anesthesia Postop Eval I Sum Postop Eval Completion status Anesthesia document: Postop Eval 1 completed: Yes Anesthesia Postop Eval I Summary Anesthesia Postop Eval I Summary: Anesthesia Postop Eval I: Assessment Summary Airway patent Yes 04/22/24 12:56 [email or web address] Spontaneous unlabored Yes 04/22/24 12:56 [email or web address] respirations Mental status Awake 04/22/24 12:56 [email or web address] nausea Yes 04/22/24 12:56 [email or web address] Vomiting No 04/22/24 12:56 [email or web address] Anesthesia Postop Eval I: Fluid Summary Crystalloid volume administer 1,100 04/22/24 12:56 [email or web address] (ml) Colloids volume administered ( ml) Blood Product volume administered (ml) Total IV fluid infused 1,100 04/22/24 12:56 [email or web address] Anesthesia Postop Eval I: Summary Notes Anesthesia Complication No 04/22/24 12:56 [email or web address] Anesthesia Complication Comment: Post-operative progress note Anesthesia: Postop Eval II Evaluation Mental status: Awake and Calm Pain Level: 6 (Patient states pain is tolerable) nausea: No Vomiting: No Complications Anesthesia Complication: No
[2024-04-22] MEDS: oxyCODONE 5 MG Tablet PO (15:10)
[2024-04-22] MEDS: Acetaminophen 325 MG Tablet 650 MG PO (15:11)
== END 2024-04-22 16:07 | disposition home or self-care (01) ==
LOC: SDC 10:39 → AC 10:40
PROVIDERS: Anesthesiology; PCP Family Medicine; Referring Provider Surgery; Visit Provider Surgery
PROC: (CPT 47610; principal; 2024-04-22 11:45)
DX: K81.1 Chronic cholecystitis (principal); F32.A Depression, unspecified; F41.9 Anxiety disorder, unspecified; I10 Essential (primary) hypertension; K21.9 Gastro-esophageal reflux disease without esophagitis; Z79.899 Other long term (current) drug therapy; F17.220 Nicotine dependence, chewing tobacco, uncomplicated
CPT/HCPCS: 47562; 00790; 74300; 76000; 81025; 88304; J2405

== ENCOUNTER 2025-01-03 22:57 | Emergency (ER) | payer BC, SELFPAY ==
[2025-01-03 22:58] VITALS: BP 143/98; PULSE 84; RESP 16; TEMP 35.9; O2SAT 98; BMI 32.3
[2025-01-03] MEDS: Metoclopramide 10 MG/2 ML Vial 5 MG IV (23:24)
[2025-01-03 23:29] LABS: Absolute Lymphocyte Count 3.94 X10^3/uL (0.83-4.51); Absolute Neutrophil Count 6.7 X10^3/uL (2.0-7.7); Basophil# 0.04 X10^3/uL; Basophil% 0.3 % (0-1); Eosinophils% 1.7 % (0-5); Hematocrit 40.3 % (37-47); Hemoglobin 13.9 g/dL (12.0-15.0); Lymphocyte # 3.94 X10^3/ul (0.83-4.51); Lymphocyte % 33.5 % (19-41); Mean Corp Hgb Conc 34.5 g/dL (32-36); Mean Corpuscular Hgb 29.1 pg (27.0-32.0); Mean Corpuscular Volume 84.5 fL (81-99); Mean Platelet Vol. 8.5 fl (6.2-12.0); Monocyte# 0.82 X10^3/uL; NRBC Flagged by Analyzer 0 % (0-5); Neutrophil # 6.72 X10^3/uL (2.7-7.7); Neutrophil % 57.1 % (47-70); Platelet Count 291 K/mm3 (150-450); RBC Distribution Width SD 36.4 fl (35.1-43.9); Red Blood Count 4.77 M/mm3 (4.2-5.4); White Blood Count 11.8 K/mm3 (4.4-11.0)
[2025-01-04 00:24] LABS: Anion Gap 12 (5-15); BUN 9 mg/dL (4-19); BUN/Creat Ratio 12.2 RATIO (10-20); Calcium 9.3 mg/dL (7.6-11.0); Carbon Dioxide 23.9 mmol/L (22.0-29.0); Chloride 102 mmol/L (96-108); Creatinine, Serum 0.75 mg/dL (0.70-1.20); EST Glomerular Filtration Rate 108 (>60); Estimated Creatinine Clearance 122.17 ml/min (50-250); Glucose 93 mg/dL (70-99); Potassium 3.6 mmol/L (3.3-5.1); Sodium Level 138 mmol/L (133-145)
--- NOTE | 2025-01-04 00:25 | EDS_ITS ---
HPI History of Present Illness Chief Complaint: Hypertension Informant: patient and parent Narrative Narrative: 34-year-old female states she started having bilateral retro-orbital headache this morning, then later she was feeling flushed and checked her blood pressure and it was elevated, then later was back down, she started having progression of what she is calling potential migraine, with some nausea, photophobia, no focal vision changes, peripheral neurologic symptoms, dizziness ataxia, trouble with speech or mentation, or confusion. However she is feeling very flushed and off, and checking her blood pressure again tonight it was over 200. She is feeling improved now but still has the headache, nausea, photophobia. Denies any recent illness. She drinks a cup of coffee each morning and then an energy drink with caffeine in it usually in the day, she had similar amount of caffeine today and other days recently. No [id number] medications. She is taking no prescription medications. She has a history of PCOS, she states in the last 4 [facility] her menstrual cycles have been regular, she currently is in the middle between cycles and her next cycle is due in 13 days. [facility] Medical History Cholecystitis Varicose vein of leg Wears glasses Depression Anxiety Alcohol use Migraine headache Gastric reflux Smoker Hypertension Physical exam, pre-employment Home Medications ?Medication ?Instructions ?Recorded ?Last Taken ?Type escitalopram oxalate 10 mg tablet 10 mg PO DAILY 03/0404/21/24 History tirzepatide 10 mg/0.5 mL 30 mg subcut TH 03/04/24 History subcutaneous pen injector omeprazole 40 mg capsule,delayed 40 mg PO DAILY #60 ca ps 03/06/24 04/22/24 Rx release ergotamine 1 mg-caffeine 100 mg See Rx Instructions PO .COMPLEX 01/04/25 Unknown Rx tablet #10 tabs Allergy/AdvReac Type Severity Reaction Status Date / Time sucralfate (From Carafate) AdvReac Severe Swelling Verified 01/03/25 22:58 Surgical History S/P cholecystectomy History of wisdom tooth extraction Social History Smoking Status: Current every day smoker tobacco type: smokeless tobacco alcohol intake: never substance use type: does not use ROS ROS ED Constitutional Constitutional ED: Denies chills or fever(s) Eyes Eyes: Reports photophobia; Denies change in vision or diplopia ENT ENT ED: Reports other Details: Facial flushing ; Denies rhinorrhea or sore throat Cardiovascular Cardiovascular: Denies chest pain or palpitations Respiratory/Chest Respiratory/Chest: Denies cough or dyspnea Gastrointestinal Gastrointestinal: Reports nausea; Denies abdominal pain, diarrhea or vomiting Genitourinary Genitourinary ED: Denies dysuria or hematuria Musculoskeletal Musculoskeletal: Denies back pain or neck pain Integumentary Denies abscess or rash Neurologic Neurologic: Reports headache(s); Denies abnormal gait, abnormal speech, disequilibrium, dizziness, paresthesias or weakness EXAM Physical Exam Const Vital Signs: 01/03/25 22:58 01/03/25 23:26 01/04/25 00:53 Temperature 96.6 F L Temperature Source Temporal Pulse Rate 84 Respiratory Rate 16 Respiratory Effort Normal Respiratory Pattern Normal Blood Pressure 143/98 H 167/120 H Blood Pressure Mean 113 135 Pulse Ox 98 Oxygen Delivery Method Room Air Positive well nourished and well developed General Appearance ED: well developed and NAD HEENT Reports moist mucous membranes normocephalic and atraumatic Eyes PERRL and EOMs intact bilaterally Neck full ROM and supple Resp normal respiratory effort and clear to auscultation bilaterally Cardio regular rate, regular rhythm and no murmurs GI non-tender and non-distended Auscultation: normoactive bowel sounds Palpation: soft Back/Spine no CVA tenderness General Back: other FROM Extremity normal to inspection General Extremety ED: Negative for edema, pulses abnormal or tenderness General Extremity: Negative for edema or pulses abnormal Neuro oriented x3, CN's II-XII intact bilaterally and no sensory deficits noted Sensorium / Orientation: awake and alert Motor Exam: strength 5/5 throughout Skin no rashes or lesions noted and no wounds MDM MDM MDM Narrative Medical decision making narrative: Blood pressure here 143/98. I ran some basic labs they are unremarkable except for a very mild nonspecific leukocytosis without a shift or bandemia. I do not think she needs a head CT, her neurologic exam is normal, she has no dysmetria or ataxia or problems speaking or understanding others. She does not have sinus tenderness/congestion I do not think this is necessarily sphenoid sinusitis since the headache is more like a migraine. For those reasons we considered a head CT but I do not think it is needed or necessary, I discussed that with her and her mother and she is in agreement. In meantime she was given Reglan and we watched her blood pressure. The Reglan did not help, her labs are unremarkable, and her repeat blood pressure is 167/120. She does not feel any different. Offered some other medications but she would prefer to go. I do not think she is in danger and I am okay with her leaving. I certainly think she needs a follow-up to see why she is having labile blood pressures. It may be related to her PCOS/hormones, I think less likely to be something like high metanephrine level since she does not have any tachycardia. It may be due to pain from the headache, but follow-up advised. Lab Data Attestation: I reviewed the patient's lab results. Labs: Laboratory Results - last 24 hr 01/03/25 23:20 WBC 11.8 H RBC 4.77 Hgb 13.9 Hct 40.3 MCV 84.5 MCH 29.1 MCHC 34.5 RDW Std Deviation 36.4 RDW Coeff of Keith 12.0 Plt Count 291 MPV 8.5 Immature Gran % (Auto) 0.400 Neut % (Auto) 57.1 Lymph % (Auto) 33.5 [place] % (Auto) 7.0 Eos % (Auto) 1.7 Baso % (Auto) 0.3 Absolute Neuts (auto) 6.7 Absolute Lymphs (auto) 3.94 Nucleated RBC % 0 Sodium 138 Potassium 3.6 Chloride Direct 102 Carbon Dioxide 23.9 Anion Gap 12 BUN 9 Creatinine 0.75 Estim Creat Clear Calc 122.17 Est GFR (MDRD) Non-Af 108 BUN/Creatinine Ratio 12.2 Glucose 93 Calcium 9.3 Discharge Plan Triage Chief Complaint: Hypertension ED Provider: Ike Sandhu Dx/Rx/DC Orders Clinical Impression: Elevated blood-pressure reading, without diagnosis of hypertension, Acute headache Instructions: ED High Blood Pressure Hypertension Prescriptions: New ergotamine-caffeine 1-100 mg tablet See Rx Instructions .ROUTE .COMPLEX Qty: 10 0RF Rx Instructions: take 2 tablets at onset of headache; if no relief, may repeat 1 tablet after at least 2 hrs; max = 3 tabs/24 hrs No Action escitalopram oxalate 10 mg tablet 10 mg PO DAILY tirzepatide 10 mg/0.5 mL pen injector 30 mg subcut TH Patient Comments: PT STATES SHE GETS THE 10MG DOSE, AND TAKES 60 UNITS omeprazole 40 mg capsule,delayed release(DR/EC) 40 mg PO DAILY Qty: 60 1RF Primary Care Provider: Shannon Lopez Referrals: Shannon Lopez MD [Primary Care Provider] - As soon as possible Print Language: Bel[place]ian Disposition Disposition: Home, Self Care
[2025-01-04 00:53] VITALS: BP 167/120
== END 2025-01-04 01:28 | disposition home or self-care (01) ==
PROVIDERS: Emergency Provider Emergency Medicine; PCP Family Medicine; Visit Provider Emergency Medicine
DX: I10 Essential (primary) hypertension (principal); R51.9 Headache, unspecified; K21.9 Gastro-esophageal reflux disease without esophagitis; E28.2 Polycystic ovarian syndrome; F17.220 Nicotine dependence, chewing tobacco, uncomplicated
CPT/HCPCS: 80048; 85025; 96374; 99283; A4216